=== PATIENT | male | born 1965 | race Caucasian/White ===

== ENCOUNTER 2019-11-16 11:23 | Emergency (ER) | payer OTHER ==
--- NOTE | 2019-11-16 11:26 | PDOC ---
History of Present Illness - General Chief Complaint: Edema Stated Complaint: BILATERAL LEG SWELLING Time Seen by Provider: 11/16/19 11:26 History Source: Patient Exam Limitations: No Limitations - History of Present Illness Initial Comments: 11/16/19 11:26 Ruben Arias is a 54M with PMH plaque psoriasis presenting with 10 weeks of bilateral LE swelling. Patient says he has been having BLE swelling for the last few months. Already saw PMD Dr. Alberto on [facility], did an ECHO and DVT study which was negative for any abnormalities, started on 20mg Lasix and now on 40mg Lasix QD with level of swelling stable. Elevates legs each night. Works in construction, on his feet all day. Per patient, gets routine blood works for psoriasis medications and does not know of any renal disease. Denies recent long distance travel, PMH or FH clotting disorders. Shoes are getting tight due to swelling, non-tender, able to walk without difficulty. Denies ever having any chest pain, SOB, palpitations. Was supposed to get BLE "vascular exam" in December but is taking too long so arrived in ED for further evaluation. Smokes 1ppd, 5-6 bottle beer on weekends, denies other drug use. Says he is overweight, but no other PMH. Used to take methotrexate for psoriasis, ran out of medication. PSH lower back 14 years ago Past History - Past Medical History Allergies/Adverse Reactions: Allergies Allergy/AdvReac Type Severity Reaction Status Date / Time No Known Allergies Allergy Verified 11/16/19 11:29 Home Medications: Ambulatory Orders Aripiprazole [Abilify] 5 mg PO DAILY 11/16/19 Atorvastatin Calcium [Lipitor] 10 mg PO DAILY 11/16/19 Escitalopram Oxalate [Lexapro -] 10 mg PO DAILY 11/16/19 Furosemide 40 mg PO DAILY 11/16/19 Methotrexate Sodium [Methotrexate] 10 mg PO WEEKLY 11/16/19 Review of Systems - Review of Systems Able to Perform ROS?: Yes Constitutional: No: Symptoms Reported HEENTM: No: Symptoms Reported Respiratory: No: Symptoms reported Cardiac (ROS): Yes: Edema. No: Chest Pain, Irregular Heart Rate, Lightheadedness, Palpitations, Syncope, Chest Tightness ABD/GI: No: Symptoms Reported : No: Symptoms Reported Musculoskeletal: No: Symptoms Reported Integumentary: Yes: Rash (psoriasis) Neurological: No: Headache, Numbness, Paresthesia, Tingling, Weakness, Unsteady Gait, Ataxia, Dizziness Endocrine: No: Symptoms Reported Hematologic/Lymphatic: No: Symptoms Reported All Other Systems: Reviewed and Negative *Physical Exam - Physical Exam General Appearance: Yes: Nourished, Appropriately Dressed. No: Apparent Distress HEENT: positive: EOMI, JUANITO, Symmetrical, Pharynx Normal, Pale Conjunctivae, Hearing Grossly Normal. negative: Scleral Icterus (R), Scleral Icterus (L), Pharyngeal Erythema, Tonsillar Exudate, Tonsillar Erythema, Hearing Decreased Neck: positive: Trachea midline, Normal Thyroid, Supple. negative: Tender, Rigid, Lymphadenopathy (R), Lymphadenopathy (L) Respiratory/Chest: positive: Lungs Clear, Normal Breath Sounds. negative: Chest Tender, Respiratory Distress, Accessory Muscle Use, Crackles, Rales, Rhonchi, Stridor, Wheezing Cardiovascular: positive: Regular Rhythm, Regular Rate. negative: Murmur Gastrointestinal/Abdominal: positive: Normal Bowel Sounds, Flat, Soft. negative : Tender, Organomegaly, Pulsatile Mass, Guarding, Rebound Musculoskeletal: positive: Normal Inspection. negative: CVA Tenderness, Vertebral Tenderness Extremity: positive: Normal Capillary Refill, Normal Inspection, Normal Range of Motion, Pelvis Stable, Pedal Edema, Swelling (3+ from feet to knees, mild ulceration to anterior left yoon). negative: Cyanosis Integumentary: positive: Normal Color, Dry, Warm, Rash (psoriatic plaques to R ulnar area, bilateral inner thighs and knees) Neurologic: positive: Fully Oriented, Alert, Normal Mood/Affect, Normal Response , Motor Strength 5/5 Medical Decision Making - Medical Decision Making 11/16/19 11:47 Patient has history of psoriasis but no history of cardiac disease, HTN, CHF, or renal disease presenting with stable and non-painful BLE edema for 10 weeks and vascular evaluation. Has already had DVT study, does not need further US unless symptoms worsen. Labs not necessary at this time, low suspicion of cardiac or renal disease that needs emergent lab evaluation at this time. Recommending f/u with wound clinic for compression stockings, and to frequently stand up during any long-distance travel. Discharge - Discharge Information Problems reviewed: Yes Clinical Impression/Diagnosis: Bilateral lower extremity edema Condition: Stable Disposition: HOME - Admission No - Follow up/Referral Referrals: Brandon Gabriel MD [Staff Physician] - Rajan Tenorio DO [Staff Physician] - Thereas Elise [Staff Physician] - - Patient Discharge Instructions Patient Printed Discharge Instructions: DI for Edema Due to Venous Stasis Additional Instructions: Today you were evaluated for swelling in your legs. You already received the appropriate testing at this time. You should follow-up with a outdoor recreation specialist so that you can get fitted for customized compression stockings, and a referral has been given. If you fly on a plan, remember to stand up and take frequent walks and stretch your legs to prevent a blood clot forming in your legs. Your psoriasis should be evaluated by a hand woven carpet and rug mender, and a referral has been given. If you experience any worsening swelling, chest pain, trouble breathing, pain in your legs, or any other new or concerning symptoms, please return to the emergency room. - Post Discharge Activity
--- NOTE | 2019-11-16 11:33 | PDOC ---
Attending Attestation - Resident Resident Name: Emmett Salas - ED Attending Attestation I have performed the following: I have examined & evaluated the patient, The case was reviewed & discussed with the resident, I agree w/resident's findings & plan, Exceptions are as noted - HPI HPI: 11/16/19 12:09 Bilateral leg edema to the knees. Slowly worsening. Superficial ulcerations. No pain, erythema, or warmth. No posterior calf swelling or pain. Venous Doppler performed several weeks ago without evidence of DVT. 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 Patient flying to [place] and wonders if he needs more vascular studies. Moderately severe plaque psoriasis controlled on methotrexate and topical creams for approximately 10 years. Ran out of medication recently and has not been able to obtain a refill or get an appointment with a switch foreman for follow-up. Has never been tried on [employer]. 11/16/19 12:12 11/16/19 12:15 - Physicial Exam PE: 11/16/19 12:10 Physical exam: Afebrile, vital signs stable Bilaterally symmetric edema to the knees, 3+. Stasis ulcerations bilaterally, superficial. Significant psoriatic plaques bilaterally, noninflamed. Pulses intact. No distal sensory or motor deficits. Specifically, no sign of arterial insufficiency of the toes. - Medical Decision Making 11/16/19 12:13 Assessment: Bilateral venous stasis, probably aggravated by long hours of standing at his job as a construction project engineer, no suggestion of DVT or arterial insufficiency. No sign of cellulitis or other significant infection Plan: Recommended wound care clinic at [facility] with consultation vascular surgeon Dr. Gabriel to prevent further ulcerations and he will those that are present. Custom fitted support stockings for work. Precautions such as stretching and frequent ambulation during plane flights to prevent travel induced DVTs. Dermatology referral for better control of psoriasis. Fully ambulatory and in no distress at discharge to follow-up as directed 11/16/19 12:15
[2019-11-16 11:39] VITALS: BP 141/88; PULSE 84; TEMP 98.6; BMI 36.7
== END 2019-11-16 12:20 | disposition home or self-care (01) ==
LOC: FER 11:23
DX: M79.89 Other specified soft tissue disorders (principal); I10 Essential (primary) hypertension; I50.9 Heart failure, unspecified
CPT/HCPCS: 99283-25

== ENCOUNTER 2021-05-04 07:38 | Emergency (ER) | payer OTHER ==
[2021-05-04 07:44] VITALS: BP 143/84; PULSE 67; TEMP 99.1; BMI 36.5
[2021-05-04] MEDS ORDERED: NAPROXEN 500 MG TABLET PO ONE (07:59)
[2021-05-04] MEDS ORDERED: NAPROXEN 500 MG TABLET ONE (08:01)
== END 2021-05-04 08:13 | disposition home or self-care (01) ==
LOC: FER 07:38
DX: M54.9 Dorsalgia, unspecified (principal)
CPT/HCPCS: 99283-25

== ENCOUNTER 2023-11-15 03:56 | Day surgery (SDC) | payer OTHER ==
[2023-11-12 15:32] VITALS: BMI 40.7
[2023-11-15] MEDS: IOHEXOL 180 MG/1 ML ML IJ ONE ×2 (13:00)
[2023-11-15] MEDS: LIDOCAINE 1% P/F 10 MG/ML VIAL INF ONE (13:03)
[2023-11-15] MEDS: DEXAMETHASONE SOD PHOSPHATE 10 MG/1 ML VIAL IVPUSH ONE ×2 (13:03→13:08)
[2023-11-15] MEDS ORDERED: ACETAMINOPHEN 500 MG TABLET (FP) PO PRN (14:25)
[2023-11-15 14:47] VITALS: BP 143/79; PULSE 71; RESP 18; TEMP 97.8
== END 2023-11-15 13:31 | disposition home or self-care (01) ==
LOC: JASU-SURG 03:56
PROVIDERS: ATTEND Pain Medicine Pain Medicine
PROC: 3E0R3BZ Introduction of Anesthetic Agent into Spinal Canal, Percutaneous Approach (ICD-10-PCS; 2023-11-15)
PROC: 3E0R33Z Introduction of Anti-inflammatory into Spinal Canal, Percutaneous Approach (ICD-10-PCS; principal; 2023-11-15 14:30)
DX: M54.16 Radiculopathy, lumbar region (principal)
CPT/HCPCS: 76000-TC-FY; J1100

== ENCOUNTER 2023-12-13 04:08 | Day surgery (SDC) | payer OTHER ==
[2023-12-06 17:02] VITALS: BMI 39.5
[2023-12-13] MEDS ORDERED: BUPIVACAINE HCL/PF 0.5% (5MG/ML) 10 ML VIAL ONE (07:27)
[2023-12-13] MEDS ORDERED: BUPIVACAINE HCL/PF 0.25% (2.5MG/ML) 10 ML VIAL ONE (07:27)
[2023-12-13] MEDS ORDERED: TRIAMCINOLONE ACET 40MG/1ML VIAL ONE (07:27)
[2023-12-13] MEDS ORDERED: LIDOCAINE HCL/PF 1% SDV 5ML VIAL ONE (07:28)
[2023-12-13] MEDS: LIDOCAINE 1% P/F 10 MG/ML VIAL INF ONE (08:34)
[2023-12-13] MEDS: IOHEXOL 180 MG/1 ML ML IJ ONE (08:34)
[2023-12-13] MEDS: DEXAMETHASONE SOD PHOSPHATE 10 MG/1 ML VIAL IVPUSH ONE (08:34)
[2023-12-13 08:56] VITALS: BP 132/87; PULSE 66; RESP 18; TEMP 98.4
== END 2023-12-13 09:10 | disposition home or self-care (01) ==
LOC: JASU-SURG 04:08
PROVIDERS: ATTEND Pain Medicine Pain Medicine
PROC: 3E0R3BZ Introduction of Anesthetic Agent into Spinal Canal, Percutaneous Approach (ICD-10-PCS; 2023-12-13)
PROC: 3E0R33Z Introduction of Anti-inflammatory into Spinal Canal, Percutaneous Approach (ICD-10-PCS; principal; 2023-12-13 08:30)
DX: M54.16 Radiculopathy, lumbar region (principal)
CPT/HCPCS: 76000-TC-FY; J1100

== ENCOUNTER 2024-01-03 05:07 | Day surgery (SDC) | payer OTHER ==
[2023-12-30 09:18] VITALS: BMI 40.1
[2024-01-03] MEDS: LIDOCAINE HCL 1% PRESERVATIVE FREE - 30ML VIAL IJ ONE (10:41)
[2024-01-03] MEDS: BUPIVACAINE HCL/PF 0.75% 10 ML VIAL NR ONE (10:41)
[2024-01-03 11:13] VITALS: BP 124/81; PULSE 71; RESP 18; TEMP 98.4
[2024-01-03] MEDS ORDERED: ACETAMINOPHEN 500 MG TABLET (FP) PO PRN (11:39)
== END 2024-01-03 11:57 | disposition home or self-care (01) ==
LOC: JASU-SURG 05:07
PROVIDERS: ATTEND Pain Medicine Pain Medicine
PROC: 3E0T33Z Introduction of Anti-inflammatory into Peripheral Nerves and Plexi, Percutaneous Approach (ICD-10-PCS; 2024-01-03)
PROC: 3E0T3BZ Introduction of Anesthetic Agent into Peripheral Nerves and Plexi, Percutaneous Approach (ICD-10-PCS; principal; 2024-01-03 11:00)
DX: M47.816 Spondylosis without myelopathy or radiculopathy, lumbar region (principal)
CPT/HCPCS: 76000-TC-FY

== ENCOUNTER 2024-01-24 04:05 | Day surgery (SDC) | payer OTHER ==
[2024-01-22 12:17] VITALS: BMI 40.1
[2024-01-24] MEDS ORDERED: LIDOCAINE HCL/PF 1% SDV 5ML VIAL ONE (07:23)
[2024-01-24] MEDS ORDERED: BUPIVACAINE HCL/PF 0.75% 10 ML VIAL ONE (07:23)
[2024-01-24 12:21] VITALS: RESP 18
[2024-01-24] MEDS ORDERED: ACETAMINOPHEN 500 MG TABLET (FP) PO PRN (13:23)
[2024-01-24] MEDS: LIDOCAINE 1% P/F 10 MG/ML VIAL INF ONE (14:26)
[2024-01-24] MEDS: BUPIVACAINE HCL/PF 0.75% 10 ML VIAL NR ONE (14:28)
[2024-01-24 14:49] VITALS: BP 134/70; PULSE 71; TEMP 98.7
== END 2024-01-24 14:45 | disposition home or self-care (01) ==
LOC: JASU-SURG 04:05
PROVIDERS: ATTEND Pain Medicine Pain Medicine
PROC: 3E0T33Z Introduction of Anti-inflammatory into Peripheral Nerves and Plexi, Percutaneous Approach (ICD-10-PCS; 2024-01-24)
PROC: 3E0T3BZ Introduction of Anesthetic Agent into Peripheral Nerves and Plexi, Percutaneous Approach (ICD-10-PCS; principal; 2024-01-24 14:15)
DX: M47.816 Spondylosis without myelopathy or radiculopathy, lumbar region (principal)
CPT/HCPCS: 76000-TC-FY

== ENCOUNTER 2024-03-27 04:17 | Day surgery (SDC) | payer OTHER ==
[2024-03-24 15:33] VITALS: BMI 40.0
[2024-03-27] MEDS ORDERED: LIDOCAINE HCL/PF 1% SDV 5ML VIAL ONE (07:09)
[2024-03-27] MEDS ORDERED: DEXAMETHASONE SOD PHOSPHATE 10 MG/1 ML VIAL ONE ×2 (07:10→11:14)
[2024-03-27 09:10] VITALS: RESP 20
[2024-03-27] MEDS ORDERED: BUPIVACAINE HCL/PF 0.75% 10 ML VIAL ONE (10:51)
[2024-03-27] MEDS ORDERED: ACETAMINOPHEN 500 MG TABLET (FP) PO PRN (11:59)
[2024-03-27 12:15] VITALS: BP 124/92; PULSE 68; TEMP 98.6
== END 2024-03-27 12:00 | disposition home or self-care (01) ==
LOC: JASU-SURG 04:17
PROVIDERS: ATTEND Pain Medicine Pain Medicine
PROC: 015B3ZZ Destruction of Lumbar Nerve, Percutaneous Approach (ICD-10-PCS; principal; 2024-03-27 10:15)
DX: M47.816 Spondylosis without myelopathy or radiculopathy, lumbar region (principal)
CPT/HCPCS: 76000-TC-FY; J1100